=== PATIENT | female | born 1980 | race Caucasian/White ===

== ENCOUNTER 2016-08-25 22:53 | Emergency (ER) | payer SELFPAY ==
[~2016-08-25] VITALS: Wt 70.0 kg
[2016-08-25] MEDS ORDERED: morphine 4 MG/ML VIAL IV STA (23:43)
[2016-08-25] MEDS ORDERED: ONDANSETRON 4 MG INJ IV STA (23:43)
[2016-08-25] MEDS ORDERED: SOD CHLORIDE 0.9% 1,000 ML IV STA (23:43)
--- NOTE | 2016-08-25 23:48 | ERD ---
ER Documentation Chief Complaint Date/Time DATE: 08/25/16 TIME: 23:46 Chief Complaint RLQ ABD PAIN FOR 4 HRS. SUDDEN ONSET. SENT BY CLINIC FOR R/O APPY. HPI 36-year-old female presents to emergency department for complaints of right lower quadrant abdominal pain started 4 hours prior to arrival. Patient described the pain as sharp pain, 8/10 scale, accompanied with nausea and vomiting, multiple episodes. Does not have any blood in the stool or black stool. Patient does not have any blood in the vomit. Patient does not have any diarrhea or constipation. Patient was seen at clinic, sent here in emergency department for rule out of appendicitis. Patient did not take any medications to help with symptoms. ROS All systems reviewed and are negative except as per history of present illness. Medications Home Meds Reported Medications [none] Unknown Strength No Conflict Check 08/25/16 Allergies Allergies: Coded Allergies: No Known Allergy (Unverified , 08/25/16) PMhx/Soc Medical and Surgical Hx: pt denies Medical Hx, pt denies Surgical Hx Hx Alcohol Use: No Hx Substance Use: No Hx Tobacco Use: No Smoking Status: Never smoker FmHx Family History: No coronary disease, No diabetes, No other Physical Exam Vitals Vital Signs Date Time Temp Pulse Resp B/P Pulse Ox O2 Delivery O2 Flow Rate FiO2 08/25/16 22:55 97.9 69 20 136/70 99 Physical Exam GENERAL: The patient is well developed and appropriate for usual state of health, in no apparent distress. CHEST: Clear to auscultation bilaterally. There are no rales, wheezes or rhonchi. HEART: Regular rate and rhythm. No murmurs, clicks, rubs or gallops. No S3 or S4. ABDOMEN: Soft, right lower quadrant tenderness noted. Good bowel sounds. No rebound or guarding. No gross peritonitis. No gross organomegaly or masses. No Pham sign. BACK: No midline or flank tenderness. EXTREMITIES: Equal pulses bilaterally. There is no peripheral clubbing, cyanosis or edema. No focal swelling or erythema. Full range of motion. Grossly neurovascularly intact. NEURO: Alert and oriented. Cranial nerves 2-12 intact. Motor strength in all 4 extremities with 5/5 strength. Sensation grossly intact. Normal speech and gait. SKIN: There is no apparent rash or petechia. The skin is warm and dry. HEMATOLOGIC AND LYMPHATIC: There is no evidence of excessive bruising or lymphedema. No gross cervical, axillary, or inguinal lymphadenopathy. Result Diagram: 08/25/16 2343 08/25/16 0000 Results 24 hrs Laboratory Tests Test 08/25/16 00:00 08/25/16 23:43 Alanine Aminotransferase (ALT/SGPT) 29IU/L Albumin 4.4g/dl Albumin/Globulin Ratio 1.15 Alkaline Phosphatase 103IU/L Anion Gap 20 Aspartate Amino Transf (AST/SGOT) 31IU/L Blood Urea Nitrogen 17mg/dl Calcium Level 9.0mg/dl Carbon Dioxide Level 24mmol/L Chloride Level 102mmol/L Creatinine 0.70mg/dl Direct Bilirubin 0.00mg/dl Globulin 3.80g/dl Glucose Level 157mg/dl Indirect Bilirubin 0.4mg/dl Lipase 89U/L Potassium Level 3.7mmol/L Sodium Level 142mmol/L Total Bilirubin 0.4mg/dl Total Protein 8.2g/dl Urine Bacteria FEW Urine Bilirubin NEGATIVE Urine Clarity CLOUDY Urine Color LT. YELLOW Urine Glucose NEGATIVE% Urine Hemoglobin 3+ Urine Ketones 3+ Urine Leukocyte Esterase NEGATIVE Urine Microscopic RBC >200/HPF Urine Microscopic WBC 0-2/HPF Urine Nitrite NEGATIVE Urine Specific [place] 1.020 Urine Squamous Epithelial Cells FEW Urine Total Protein 1+ Urine Urobilinogen 0.2 E.U./dL Urine pH 7.0 Basophils # 0.110^3/ul Basophils % 0.4% Eosinophils # 0.010^3/ul Eosinophils % 0.2% Hematocrit 37.7% Hemoglobin 12.9g/dl Lymphocytes # 1.110^3/ul Lymphocytes % 8.3% Mean Corpuscular Hemoglobin 30.5pg Mean Corpuscular Hemoglobin Concent 34.2g/dl Mean Corpuscular Volume 89.1fl Mean Platelet Volume 10.6fl Monocytes # 0.410^3/ul Monocytes % 3.2% Neutrophils # 11.110^3/ul Neutrophils % 87.3% Nucleated Red Blood Cells # 0.010^3/ul Nucleated Red Blood Cells % 0.0/100WBC Platelet Count 94871^3/UL Red Blood Count 4.2310^6/ul Red Cell Distribution Width 12.1% White Blood Count 12.710^3/ul Current Medications Medications (Trade) Dose Ordered Sig/Blanca Route PRN Reason Start Time Stop Time Status Last Admin Dose Admin Sodium Chloride (NS) 1,000 ml @ 1,000 mls/hr Q1H STAT IV 08/25/16 23:43 08/26/16 00:42 DC 08/26/16 00:03 Morphine Sulfate (morphine) 4 mg ONCE STAT IV 08/25/16 23:43 08/25/16 23:44 DC 08/26/16 00:05 Ondansetron HCl (Zofran Inj) 4 mg ONCE STAT IV 08/25/16 23:43 08/25/16 23:44 DC 08/26/16 00:05 Patient was given medication for pain here in emergency department, after treatment, patient verbalized feeling much better. Patient's pain is improved.Patient was given Zofran here in the emergency department. After treatment, patient was able to tolerate po fluids here in the emergency department without any vomiting. There is no signs and symptoms of dehydration. Normal saline IV bolus was given here in emergency department for rehydration, patient tolerated IV fluids. PROCEDURE: CT Abdomen and pelvis without contrast. CLINICAL INDICATION: Abdominal pain. TECHNIQUE: CT scan of the abdomen and pelvis was performed on a multi- detector high-resolution CT scanner. Contiguous axial images were obtained from the lung bases to the ischial tuberosities without intravenous contrast. Coronal and sagittal reformatted images were also obtained. Images were reviewed on the PACS workstation. One or more of the following dose reduction techniques were used: - Automated exposure control. - Adjustment of the mA and/or kV according to patient size. - Use of iterative reconstruction technique. Exam CTD/vol = 11.19 mGy. Total exam DLP = 665.54 mGy-cm. COMPARISON: None. FINDINGS: Evaluation of the lung bases demonstrates mild bibasilar atelectasis. Abdomen: The liver is normal in size. There is no focal mass or dilatation of the biliary tree. The gallbladder is not distended. The spleen, pancreas and bilateral adrenal glands are within normal limits. Bilateral kidneys are normal in size with no contour deforming mass identified. There is no radiopaque renal calculus identified. There is mild to moderate right-sided hydronephrosis with mild perinephric stranding. There is a 4 mm calculus within the right proximal ureter. There is no retroperitoneal adenopathy. The abdominal aorta is of normal caliber. There is no abnormal bowel wall thickening or distension. There is no bowel obstruction or free air. A normal appendix is identified. There is no diverticulosis or diverticulitis. There is no ascites. Pelvis: The bladder is unremarkable. The uterus and adnexa are within normal limits. There is no significant pelvic adenopathy or free fluid. Evaluation of the osseous structures demonstrates no suspicious lytic or blastic lesion. IMPRESSION: Right proximal ureteral 4 mm calculus with mild to moderate right-sided hydronephrosis. Mild bibasilar atelectasis. .Chavo Rueda MD, Date Time Electronically viewed and signed by .Chavo Rueda MD, MD on 08/26/2016 01:43 .T/ CC: [employer] Procedures/MDM Medical Decision Making: Patient's symptoms most likely consistent with renal colic. No appendicitis noted in the CT scan. No infected stone noted. Low suspicion for septic stone. There is low suspicion for abdominal emergencies at this time. Patients abdominal exam is normal at this time. Patients radiology exam does not show any abdominal emergencies at this time. There is low suspicion for appendicitis, cholecystitis, abdominal aortic aneurysms or peritonitis at this time. There is low suspicion for sepsis. Patient appears well and is hemodynamically stable. Disposition: Home. Condition: Stable Prescription tamsulosin, Pyridium, [place], ibuprofen, Zofran Instructions: Patient is advised to take medications as prescribed. Patient is advised to rest, increase fluid intake and do see urology specialist. Patient is advised that if symptoms are worse, severe abdominal pain, uncontrolled vomiting, high fever, severe flank pain, worst signs and symptoms, to return to the emergency department immediately. Otherwise, patient can follow up with primary care doctor in 5-7 days. Departure Diagnosis: Primary Impression: Renal colic on right side Condition: Stable Patient Instructions: Kidney Stone W/ Colic Additional Instructions: Patient is advised to take medications as prescribed. Patient is advised to rest , increase fluid intake and do see urology specialist. Patient is advised that if symptoms are worse, severe abdominal pain, uncontrolled vomiting, high fever , severe flank pain, worst signs and symptoms, to return to the emergency department immediately. Otherwise, patient can follow up with primary care doctor in 5-[address] KATHERYN Aug 25, 2016 23:48
[2016-08-26 00:23] LABS: ADD SCAN DIFF NO
[2016-08-26 00:28] LABS: ADD UMIC YES; URINE BILIRUBIN (Dip) NEGATIVE (NEGATIVE); URINE BLOOD (Dip) 3+ (NEGATIVE); URINE COLOR LT. YELLOW (YELLOW); URINE GLUCOSE (Dip) NEGATIVE (NEGATIVE); URINE KETONES (Dip) 3+ (NEGATIVE); URINE LEUKOCYTE ESTERASE (Dip) NEGATIVE (NEGATIVE); URINE NITRITE (Dip) NEGATIVE (NEGATIVE); URINE TOTAL PROTEIN (Dip) 1+ (NEGATIVE); URINE UROBILINOGEN (Dip) 0.2 E.U./dL (0.1-1.0)
[2016-08-26 00:31] LABS: BASOPHIL # 0.1 10^3/ul (0.0-0.1); BASOPHILS % 0.4 % (0.0-2.0); EOSINOPHILS % 0.2 % (0.0-7.0); HEMATOCRIT 37.7 % (37.0-47.0); HEMOGLOBIN 12.9 g/dl (12.0-16.0); LYMPHOCYTES # 1.1 10^3/ul (0.8-2.9); LYMPHOCYTES % 8.3 % (15.0-51.0); MEAN CORPUSCULAR HEMOGLOBIN 30.5 pg (29.0-33.0); MEAN CORPUSCULAR HGB CONC 34.2 g/dl (32.0-37.0); MEAN CORPUSCULAR VOLUME 89.1 fl (82.0-101.0); MEAN PLATELET VOLUME 10.6 fl (7.4-10.4); MONOCYTE # 0.4 10^3/ul (0.3-0.9); MONOCYTES % 3.2 % (0.0-11.0); NEUTROPHIL # 11.1 10^3/ul (1.6-7.5); NEUTROPHILS % 87.3 % (39.0-77.0); PLATELET COUNT 318 10^3/UL (140-415); RED BLOOD COUNT 4.23 10^6/ul (4.20-5.40); RED CELL DISTRIBUTION WIDTH 12.1 % (11.5-14.5); WHITE BLOOD COUNT 12.7 10^3/ul (4.8-10.8)
[2016-08-26 00:41] LABS: BACTERIA,URINE FEW; SQUAMOUS EPITHELIAL CELL,UR FEW; URINE RBCS >200 /HPF (0)
[2016-08-26 00:43] LABS: ALBUMIN 4.4 g/dl (3.3-4.9)
[2016-08-26 00:44] LABS: POTASSIUM 3.7 mmol/L (3.5-5.1)
[2016-08-26 00:46] LABS: ALBUMIN/GLOBULIN RATIO 1.15; BILIRUBIN,INDIRECT 0.4 mg/dl (0-1.1); BILIRUBIN,TOTAL 0.4 mg/dl (0.2-1.3); CREATININE 0.7 mg/dl (0.44-1.00); TOTAL PROTEIN 8.2 g/dl (6.1-8.1)
--- NOTE | 2016-08-26 01:43 | RADRPT ---
PROCEDURE: CT Abdomen and pelvis without contrast. CLINICAL INDICATION: Abdominal pain. TECHNIQUE: CT scan of the abdomen and pelvis was performed on a multi-detector high-resolution CT scanner. Contiguous axial images were obtained from the lung bases to the ischial tuberosities wit hout intravenous contrast. Coronal and sagittal reformatted images were also obtained. Images were reviewed on the PACS workstation. One or more of the following dose reduction techniques were used: - Automated exposure control. - Adjustment of the mA and/or kV according to patient size. - Use of iterative reconstruction technique. Exam CTD/vol = 11.19 mGy. Total exam DLP = 665.54 mGy-cm. COMPARISON: None. FINDINGS: Evaluation of the lung bases demonstrates mild bibasilar atelectasis. Abdomen: The liver is normal in size. There is no focal mass or dilatation of the biliary tree. T he gallbladder is not distended. The spleen, pancreas and bilateral adrenal glands are within rosalva l limits. Bilateral kidneys are normal in size with no contour deforming mass identified. There is no radiopaque renal calculus identified. There is mild to moderate right-sided hydronephrosis with mild perinephric stranding. There is a 4 mm calculus within the right proximal ureter. There is n o retroperitoneal adenopathy. The abdominal aorta is of normal caliber. There is no abnormal bowel wall thickening or distension. There is no bowel obstruction or free air . A normal appendix is identified. There is no diverticulosis or diverticulitis. There is no asci andrade. Pelvis: The bladder is unremarkable. The uterus and adnexa are within normal limits. There is no significant pelvic adenopathy or free fluid. Evaluation of the osseous structures demonstrates no suspicious lytic or blastic lesion. IMPRESSION: Right proximal ureteral 4 mm calculus with mild to moderate right-sided hydronephrosis. Mild bibasilar atelectasis. .Chavo Rueda MD, MD Date Time Electronically viewed and signed by .Chavo Rueda MD, MD on 08/26/2016 01:43 .T/
[2016-08-26] MEDS ORDERED: TAMS0.4C2 PO (02:00)
[2016-08-26] MEDS ORDERED: PHEN-538 PO (02:00)
[2016-08-26] MEDS ORDERED: HYDR-906 PO (02:00)
[2016-08-26] MEDS ORDERED: ONDA4TAB14 PO (02:00)
== END 2016-08-26 02:28 | disposition home or self-care (01) ==
LOC: FTE 22:53
DX: N23 Unspecified renal colic (principal); R11.2 Nausea with vomiting, unspecified
CPT/HCPCS: 36415; 74176; 80053; 81001; 81003; 83690; 85025; 96374; 96375; 99285; J2270; J2405; J7030